=== PATIENT | male | born 1995 | race Caucasian/White ===

== ENCOUNTER 2024-03-30 11:45 | Emergency (ER) | payer BC, SELFPAY ==
[2024-03-30 12:10] VITALS: BP 146/97
--- NOTE | 2024-03-30 12:13 | ED.GENMED ---
ED Provider Triage
<Marivel Moreno NP - Last Filed: 03/30/24 12:17>
-
Patient seen by provider in Triage?: Seen in Triage
Attestation: A medical screening examination has been initiated by a qualified medical provider. Based on the assessment performed at this time, it has been determined that an emergent medical condition may exist and the patient has been informed
that further medical evaluation and possible additional diagnostic testing may be needed.
HPI: 29-year-old male with no past medical history presents for on 02/18/24 developed a sudden right sided pain shooting to spine while doing muscle ups at [employer] today. Saw Dr. Mock in [facility] orthopedics, who ordered physical therapy,
has finished 3 weeks of physical therapy, has an MRI ordered but is waiting for insurance approval, has been taking meloxicam with little improvement.
Denies weakness in the legs, denies saddle anesthesia, denies loss of bowel or bladder control.
GENERAL: Alert , in no apparent distress
EYE: No visual abnormalities.
NECK: Trachea midline
ENT: No visible abnormalities.
LUNGS: No acute respiratory distress
NEUROLOGICAL: Alert and oriented
SKIN: Skin intact. No visible changes.
MUSCULOSKELETAL: Moving extremities normally
PSYCH: Normal and appropriate interaction.
This is a medical evaluation conducted in person to initiate diagnostic evaluation and provide initial therapeutics. Please see further documentation by the treating clinician.
History of Present Illness
<Marivel Moreno PIN MACHINE OPERATOR - Last Filed: 03/30/24 12:17>
General
Chief Complaint: Back Pain
Time Seen by Provider: 03/30/24 15:11
<Fei Farooq PA-C - Last Filed: 03/30/24 15:52>
General
Source: patient
History of Present Illness
History of Present Illness:
29-year-old male with no significant past medical history presenting to the emergency department for evaluation of mid to upper back pain that has been ongoing since he was doing a [employer] workout and while performing a chin up felt a pull in his
mid back and has had pain since that time. Patient notes pain seems to be worse in the morning upon awakening and will gradually improved throughout the day. States throughout the night he is constantly awakening due to the pain. Went to physical
therapy and an orthopedic appointment, PT for the last 2-1/2 weeks and orthopedist this past Friday, given a prescription for meloxicam which she is taking with some but mostly no relief. Patient states no change in his symptoms today but is
getting frustrated that he is not having any improvement which is why he decided to come to the ER. Patient denies any fevers, traumatic injuries, focal weakness or numbness, bladder or bowel incontinence, paresthesias to extremities, history of IV
drug abuse or other substance use, cancer history or diabetes. Patient has not attempted any other medications other than the meloxicam. Denies any history of similar.
Past History
<Fei Farooq PA-C - Last Filed: 03/30/24 15:52>
Past History
ED Past Medical History: None
ED Past Surgical History: None
Social History
Tobacco: Non-smoker
Alcohol: Occasional
Drug: None
Personal: Single
Living: with family
Employment: Employed
Review of Systems
<Fei Farooq PA-C - Last Filed: 03/30/24 15:52>
Review of Systems
All Other Systems: ROS reviewed and negative except as documented in HPI and ROS
Phy Exam
<Fei Farooq PA-C - Last Filed: 03/30/24 15:52>
Physical Exam
Physical Exam:
GENERAL: Alert , in no apparent distress
EYE: clear conjunctiva b/l
NECK: Supple
ENT: o/p clr, mmm.
CARDIAC: Regular rate and rhythm .
LUNGS: Clear breath sounds bilaterally, no acute respiratory distress, no wheezes/rales/rhonchi
BACK: Normal range of motion, no focal tenderness, no midline bony tenderness, no rashes
NEUROLOGICAL: Alert and oriented, no focal neuro deficits. Patellar and calcaneal deep tendon reflexes intact and equal bilaterally, sensation grossly intact and equal to light touch bilateral lower extremities
SKIN: Warm and dry, skin intact.
MUSCULOSKELETAL: No edema, well perfused. EHL intact bilaterally
PSYCH: Normal and appropriate interaction.
Scores
<Fei Farooq PA-C - Last Filed: 03/30/24 15:52>
Heart Failure Risk
Heart Failure Risk Score: Not Applicable
Heart Score for Chest Pain Patients
STEMI patient?: Not applicable
Withdrawal Assessment of Alcohol
Withdrawal Assessment Completed?: Not applicable
Course
<Marivel Moreno NP - Last Filed: 03/30/24 12:17>
Vital Signs
Initial and Last Documented VS:
Initial Vital Signs
Temp Pulse Resp BP Pulse Ox
98.5 F 67 16 146/97 99
03/30/24 12:10 03/30/24 12:10 03/30/24 12:10 03/30/24 12:10 03/30/24 12:10
Last Documented Vital Signs
Temp Pulse Resp BP Pulse Ox
98.5 F 67 16 146/97 99
03/30/24 12:10 03/30/24 12:10 03/30/24 12:10 03/30/24 12:10 03/30/24 12:10
<Fei Farooq PA-C - Last Filed: 03/30/24 15:52>
Vital Signs
Initial and Last Documented VS:
Initial Vital Signs
Temp Pulse Resp BP Pulse Ox
98.5 F 67 16 146/97 99
03/30/24 12:10 03/30/24 12:10 03/30/24 12:10 03/30/24 12:10 03/30/24 12:10
Last Documented Vital Signs
Temp Pulse Resp BP Pulse Ox
98.5 F 67 16 146/97 99
03/30/24 12:10 03/30/24 12:10 03/30/24 12:10 03/30/24 12:10 03/30/24 12:10
<Fei Farooq PA-C - Last Filed: 03/30/24 15:52>
MDM/Problems Addressed
Differential Diagnosis Includes:
Muscle strain, disc herniation, nerve impingement, spinal stenosis, less concern for any vascular pathology given lack of other symptoms combined with duration of symptoms, no symptoms to suggest infectious etiology
MDM/Problems Addressed:
29-year-old male presenting to the emergency department for evaluation of back pain that has been ongoing for the last few weeks, no improvement with physical therapy and meloxicam. Patient was hoping for more advanced imaging. Discussed with
patient that at this time he does not have risk factors for any emergent pathologies and that I would be unable to obtain MRI here. I did offer x-ray imaging however patient reports that he already had x-rays done at the orthopedic provider.
Advised him if symptoms persisted that he would likely need to schedule an MRI. Discussed return precautions and signs and symptoms to look for to which patient is in agreement. Will trial a Medrol Dosepak, muscle relaxer and advised topical
agents for continued relief of symptoms. Patient otherwise stable for discharge home.
<Fei Farooq PA-C - Last Filed: 03/30/24 15:52>
*Pulse Oximetry
Patient hypoxic: no
*Critical Care Note
Total Time (30-74mins, 75-104mins- exclusive of procedures): Not Applicable
ED Attending Note
<Marivel Moreno NP - Last Filed: 03/30/24 12:17>
-
Portions of this chart may have been created with voice recognition software.� Occasional wrong word or��sound alike� substitutions may have occurred due to the inherent limitations of voice recognition software.
Discharge Plan
Departure
Patient Disposition: Home (Routine Discharge)
Date of Disposition: 03/30/24
Time of Disposition: 15:37
Patient with high blood pressure during this ER visit?: No
Discharge Problem:
Dorsalgia
Instructions: Low Back Pain (DC)
Prescriptions:
New
methylprednisolone [Medrol (Nigel)] 4 mg tablets,dose pack
4 mg PO DIRECTED Qty: 21 0RF
baclofen 10 mg tablet
10 mg PO BID PRN (Reason: muscle spasm) Qty: 8 0RF
Referrals:
Pantera Quiñones DO [Family Provider] -
Franco Bethea MD [Active] - (Ortho - Call for appointment as needed)
Interventions
Interventions:
*Risk Screen - Suicide Last Done: 03/30/24 12:10
*General Assessment Last Done: 03/30/24 13:10
*Neglect/Abuse Screening Last Done: 03/30/24 13:10
ED- Fall Risk Assessment Last Done: 03/30/24 15:50
*ED COVID-19 Vaccine History Last Done: 03/30/24 13:10
*Nursing Disposition Last Done: 03/30/24 15:50
ED-Musculoskeletal Assessment Last Done: 03/30/24 13:10
Discharge Date and Time
Print Language: [place]
[2024-03-30 15:50] VITALS: BP 152/77
== END 2024-03-30 15:50 | disposition home or self-care (01) ==
LOC: EMR 11:45
PROVIDERS: EMERGENCY PHYSICIAN Emergency Medicine; FAMILY PHYSICIAN Family Medicine
DX: M54.6 Pain in thoracic spine (principal)
CPT/HCPCS: 99282